=== PATIENT | female | born 1985 | race Two or more races ===

== ENCOUNTER 2017-02-20 18:26 | Inpatient (IN) | payer MEDICAID ==
[2017-02-20] MEDS ORDERED: Acetaminophen 325 MG Tab PO ONE (19:00)
[2017-02-20] MEDS ORDERED: Ondansetron 4 MG Tab.DIS PO ONE (19:01)
[2017-02-20] MEDS ORDERED: Sodium Chloride 0.9% 10 ML Syringe FLUSH PRN (20:55)
[2017-02-20] MEDS ORDERED: Citric Acid/Sodium Citrate Solution 30 ML Cup PO ONE (20:55)
[2017-02-20] MEDS ORDERED: Clindamycin Phosphate 900 MG in Sodium Chloride 0.9% 100 ML IV ONE (20:57)
--- NOTE | 2017-02-20 21:04 | PCM.LDHP ---
L&D History of Present Illness - General Date of Service: 02/20/17 Admit Problem/Dx: Patient Status Order with Admit Dx/Problem 02/20/17 20:55 Patient Status [ADT] Routine Admission Diagnosis/Problem Admission Diagnosis/Problem care Source of Information: Patient - History of Present Illness Introduction:: 31-year-old at 37w6d with a history of previous section x2. She presented with complaints of low back pain and diarrhea, which is how her last two labors started. Upon arrival to the floor, she was noted to be 3.5 cm dilated. Patient was planning to delivery in [place] and have a tubal ligation during surgery. She and her talked about it and have decided to not proceed with tubal ligation. After 2 hours, cervix had changed to 4 cm and become more anterior. She is otherwise feeling well. Baby has been active. No vaginal bleeding or leaking of fluid. Pain Score: 4 - Related Data Allergies/Adverse Reactions: Allergies Allergy/AdvReac Type Severity Reaction Status Date / Time amoxicillin Allergy Anaphylactic Verified 02/20/17 19:07 Shock Home Medications: Home Meds Vit #108/Iron/FA [ One Tablet] 1 each PO DAILY 02/20/17 [ History] Past Medical History [employer] History: Reports: Other (see below) Other OB/BYN History: one vaginal and on c section Psychiatric History: Reports: Depression Social & Family History - Family History Family Medical History: Noncontributory - Tobacco Use Smoking Status *Q: Never Smoker Second Hand Smoke Exposure: No - Caffeine Use Caffeine Use: Reports: None - Recreational Drug Use Recreational Drug Use: Yes Drug Use in Last 12 Months: Yes Recreational Drug Type: Reports: Amphetamines (Speed), Other (see below) Other Recreational Drug Type: intensive out patient tx Recreational Drug Use Frequency: Not Used In Over 1 Month Recreational Drug Last Use: dec 2016 H&P Review of Systems - Review of Systems: Review Of Systems: See Below General: Reports: no symptoms HEENT: Reports: no symptoms Pulmonary: Reports: No Symptoms Cardiovascular: Reports: no symptoms Gastrointestinal: Reports: No symptoms Genitourinary: Reports: no symptoms Musculoskeletal: Reports: back pain Skin: Reports: no symptoms L&D Exam - Exam Exam: See Below - Vital Signs Weight: 111.584 kg - OB Specific movement: active heart tones: present heart tones per min: 120 Heart Rate (FHR) Variability: Moderate (6-25 bmp) Presentation: Vertex - Abarca Score Abarca Score Cervix Position: Anterior Abarca Score Consistency: Soft Abarca Score Effacement: 31-50% Abarca Score Dilation: 3-4 cm Abarca Score 's Station: -1 ,0 Abarca Score Total: 9 - Exam General: alert, oriented Lungs: Clear to auscultation, Normal respiratory effort Cardiovascular: regular rate, regular rhythm. No: systolic murmur, diastolic murmur Abdomen: normal bowel sounds, soft, other (Ventral hernia noted superior to uterus) Skin: warm, dry, intact - Problem List (1) care in third trimester SNOMED Code(s): 219171378, 37550337, 90510924, 339574541, 363854755 ICD Code: Z34.93 - ENCNTR FOR SUPRVSN OF NORMAL PREG, UNSP, THIRD TRIMESTER Status: Acute Current Visit: Yes (2) Drug use affecting in second trimester SNOMED Code(s): 91598857, 97434196, 823889904 ICD Code: O99.322 - DRUG USE COMPLICATING , SECOND TRIMESTER Status: Acute Current Visit: Yes (3) History of delivery SNOMED Code(s): 030088435 ICD Code: Z98.891 - HISTORY OF UTERINE SCAR FROM PREVIOUS SURGERY Status: Acute Current Visit: Yes (4) Ventral hernia SNOMED Code(s): 493821509 ICD Code: K43.9 - VENTRAL HERNIA WITHOUT OBSTRUCTION OR GANGRENE Status: Acute Current Visit: Yes Problem List Initiated/Reviewed/Updated: Yes Orders Last 24hrs: Active Orders 24 hr Category Date Time Status Patient Status [ADT] Routine ADT 02/20/17 20:55 Ordered Notify Provider Vital Signs OB [RC] ASDIRECTED Care 02/20/17 20:55 Ordered Peripheral IV Care [RC] . DIRECTED Care 02/20/17 20:55 Ordered Procedure Site Prep Instruct [RC] ASDIRECTED Care 02/20/17 20:55 Ordered RT Incentive Spirometry [RC] ASDIRECTED Care 02/20/17 20:55 Ordered Vital Signs [RC] PER UNIT ROUTINE Care 02/20/17 20:55 Ordered Nothing Per Oral Diet [DIET] Diet 02/20/17 Breakfast Ordered Nothing Per Oral Diet [DIET] Diet 02/20/17 Dinner Ordered Nothing Per Oral Diet [DIET] Diet 02/20/17 Lunch Ordered CBC WITH AUTO DIFF [HEME] Routine Lab 02/20/17 20:55 Ordered DRUG SCREEN,SERUM [CHEM] Routine Lab 02/20/17 20:55 Ordered TYPE AND SCREEN [BBK] Routine Lab 02/20/17 20:55 Ordered Citric Acid/Sodium Citrate [Bicitra Solution] Med 02/20/17 20:55 Once 30 ml PO ONETIME ONE Clindamycin Phosphate [Cleocin] 900 mg Med 02/20/17 20:57 Ordered Sodium Chloride 0.9% [Normal Saline] 100 ml IV ONETIME Gentamicin 560 mg Med 02/20/17 20:55 Ordered Sodium Chloride 0.9% [Normal Saline] 100 ml IV ONETIME Sodium Chloride 0.9% [Saline Flush] Med 02/20/17 20:55 Ordered 10 ml FLUSH ASDIRECTED PRN Peripheral IV Insertion Adult [OM.PC] Routine Oth 02/20/17 20:55 Ordered Schedule Procedure [COMM] Per Unit Routine Oth 02/20/17 20:55 Ordered Resuscitation Status Routine Resus Stat 02/20/17 20:55 Ordered Medication Orders Citric Acid/Sodium Citrate (Bicitra Solution) 30 ml PO ONETIME ONE Stop: 02/20/17 20:56 Gentamicin Sulfate 560 mg/ (Sodium Chloride) 114 mls @ 200 mls/hr IV ONETIME ONE Stop: 02/20/17 21:24 Clindamycin Phosphate 900 mg/ (Sodium Chloride) 106 mls @ 200 mls/hr IV ONETIME ONE Stop: 02/20/17 21:28 Sodium Chloride (Saline Flush) 10 ml FLUSH ASDIRECTED PRN PRN Reason: Keep Vein Open Assessment/Plan Comment:: 31-year-old at 37w6d with history of repeat section and cervical change 1. Proceed with repeat section. Risks of surgery, including but no limited to blood loss, infection, injury to organs, etc was discussed with the patient. Consents were signed. 2. Ampicillin and gentamicin ordered 3. Will obtain UDS Jessica Montenegro MD
[2017-02-20] MEDS ORDERED: Sodium Chloride 0.9% 100 ML ONE (21:15)
[2017-02-20] MEDS ORDERED: Clindamycin Phosphate 900 MG/6 ML SDV ONE (21:15)
[2017-02-20] MEDS ORDERED: Oxytocin/Normal Saline 60 UNIT/1,000 ML BAG ONE (21:15)
[2017-02-20] MEDS ORDERED: Oxytocin/Normal Saline 30 UNIT/500 ML BAG IV SCH (22:00)
[2017-02-20] MEDS ORDERED: Carboprost Tromethamine 250 MCG/1 ML Amp IM ONE (22:52)
[2017-02-20] MEDS ORDERED: ePHEDrine 50 MG/ML SDV IVPUSH PRN (22:52)
[2017-02-20] MEDS ORDERED: Acetaminophen/oxyCODONE 325-5 MG Tab PO PRN (22:52)
[2017-02-20] MEDS ORDERED: Naloxone 2 MG/2 ML Syringe IVPUSH PRN (22:52)
[2017-02-20] MEDS ORDERED: Misoprostol 400 MCG (4 X 100 MCG TAB) RECTAL PRN (22:52)
[2017-02-20] MEDS ORDERED: Methylergonovine 0.2 MG/1 ML Amp IM PRN (22:52)
[2017-02-20] MEDS ORDERED: diphenhydrAMINE 50 MG/ML SDV IVPUSH PRN (22:52)
--- NOTE | 2017-02-20 22:56 | PCM.SN ---
- Free Text/Narrative Note: Section Operative Report Date of Surgery: 02/20/17 Surgeon: Jessica Montenegro MD Glost Tile Sorter: MD Gloria Tapia MSI Pre-Operative Diagnosis: History of previous section Early labor Post-Operative Diagnosis: Same Procedure Performed: Repeat low transverse section Anesthesia: Spinal EBL: 350 mL IVF: 1700 mL Drains: Tolentino catheter with 200 mL of urine output Specimens: None Complications: None apparent Findings: Normal uterus, tubes, and ovaries. Indication and Consent: patient presented with back pain and cramping. She was found to have cervical change after observation for 2 hours. The decision was made to proceed with repeat section. Initially, patient had desired tubal ligation. She had seen Dr. Dada French in [place] and was set up to deliver there in about 2-1/2 weeks. After speaking to her , patient has decided that doing a tubal is too permanent for her. Therefore, she prefers to deliver in [place].The patient understood that the risks of section include, but are not limited to, visceral or vascular injury, infection, blood loss and need for blood transfusion, prolonged hospitalization, and reoperation. The patient stated understanding and desired to proceed. All questions were answered. Procedure in Detail: The patient was taken to the operating room. Tolentino catheter and pneumoboots were placed. She was then prepped and draped in routine fashion in dorsal supine position with a left jay tilt. Two grams of cefazolin (Ancef) were given for infection prophylaxis. Spinal anesthesia was administered. A Pfannenstiel skin incision was made with a scalpel and carried down to the fascia. The fascia was incised and extended laterally. The rectus musculature was in the midline down to the level of the pubic symphysis. The peritoneum was found to be free of adherent bowel or bladder tissue and entered bluntly. The peritoneal opening was then extended superiorly and inferiorly to the bladder reflection with good visualization of the bladder. The Miguel retractor was placed. Brief intraabdominal survey revealed scant, clear peritoneal fluid and thinned-out lower uterine segment. The bladder blade was positioned to keep the bladder out of the operative field. The lower uterine segment was incised with a scalpel. The amniotic sac was ruptured with an Allis clamp and clear fluid was noted. The uterine incision was extended bluntly with lateral and upward traction. The fetus was in vertex position. The head was elevated out of the maternal pelvis with special attention paid to avoid using the uterine incision as a fulcrum. Gentle fundal pressure was applied once the head was brought into the incision. The infant was delivered with minimal difficulty. Bulb suctioning of the infant's nose and mouth was performed on the operative field. The cord was clamped and cut in standard fashion, and the was handed over to the awaiting nursery staff. IV oxytocin was initiated to facilitate uterine contractions. The placenta was delivered intact with manual message of the uterine fundus along with gentle cord traction. The uterus was then exteriorized. The inside of the uterus was gently wiped with a lap sponge to assure complete removal of remaining products of conception. The uterine incision was closed with 0 - Vicryl suture in a running locked fashion. A second imbricating layer of 0- Vicryl was also placed. The incision was inspected and hemostasis achieved. The ovaries and tubes were visualized and found to be normal. The uterus, tubes, and ovaries were returned to the abdominal cavity. The blood clots and fluid were wiped out of the abdomen and pelvis with moist laparotomy sponges. The uterine incision was re-inspected along with all other incised surfaces and good hemostasis was confirmed. The Miguel retractor was removed. The peritoneus was then closed using 2-0 Vicyrl. The fascia was then closed with 2-0 looped PDS suture with care not to include any underlying abdominal contents. The sub-cutaneous layer was reapproximated with plain suture. The skin was closed with 3-0 suture on a Thanh needle in a subcuticular fashion. Dressing was applied. Sponge and instrument counts were reported as correct times two. Pt tolerated procedure well and was taken to PACU in stable condition. Jessica Montenegro MD
--- NOTE | 2017-02-20 22:56 | PCM.DEL ---
L & D Note - General Info Date of Service: 02/20/17 - Delivery Note Labor: spontaneous Delivery Outcome: Livebirth Delivery Method: Repeat Presentation: Vertex Amniotic Fluid Description: Clear Placenta: intact, manual removal Cord: 3 vessels Estimated blood loss: 350 Anderson: stimulated Delivery Comments (Free Text/Narrative):: patient delivered via repeat section after presenting to labor and delivery with back pain and noted to have change in cervical dilation. Please see operative note for further details. Jessica Montenegro MD - Patient Data Weight - most recent: 111.584 kg Lab Results last 24 hrs: Laboratory Results - last 24 hr 02/20/17 Range/Units 21:12 WBC 9.7 (5.0-10.0) 10^3/uL RBC 3.91 L (4.2-5.4) 10^6/uL Hgb 10.4 L (12.0-16.0) g/dL Hct 32.7 L (37.0-47.0) % MCV 83.6 (80-100) fL MCH 26.6 L (27.0-34.0) pg MCHC 31.8 L (33.0-35.0) g/dL Plt Count 162 (150-450) 10^3/uL Neut % (Auto) 72.5 (42.2-75.2) % Lymph % (Auto) 17.7 L (20.5-50.1) % Miller % (Auto) 8.0 (2-8) % Eos % (Auto) 1.5 (1.0-3.0) % Baso % (Auto) 0.3 (0.0-1.0) % Add Manual Diff Yes Med Orders - Current: Current Medications Sodium Chloride (Saline Flush) 10 ml FLUSH ASDIRECTED PRN PRN Reason: Keep Vein Open Discontinued Medications Acetaminophen (Tylenol) 650 mg PO NOW ONE Stop: 02/20/17 19:01 Last Admin: 02/20/17 19:28 Dose: 650 mg Citric Acid/Sodium Citrate (Bicitra Solution) 30 ml PO ONETIME ONE Stop: 02/20/17 20:56 Last Admin: 02/20/17 21:11 Dose: 30 ml Clindamycin Phosphate (Cleocin) Confirm Administered Dose 900 mg .ROUTE .STK- MED ONE Stop: 02/20/17 21:16 Gentamicin Sulfate 560 mg/ (Sodium Chloride) 114 mls @ 200 mls/hr IV ONETIME ONE Stop: 02/20/17 21:24 Last Admin: 02/20/17 21:20 Dose: 200 mls/hr Clindamycin Phosphate 900 mg/ (Sodium Chloride) 106 mls @ 200 mls/hr IV ONETIME ONE Stop: 02/20/17 21:28 Last Admin: 02/20/17 21:28 Dose: 200 mls/hr Oxytocin/Sodium Chloride (Pitocin In Ns 30 Unit/500 Ml) Confirm Administered Dose 60 unit in 1,000 mls @ as directed .ROUTE .STK-MED ONE Stop: 02/20/17 21:16 Sodium Chloride (Normal Saline) Confirm Administered Dose 100 mls @ as directed .ROUTE .STK-MED ONE Stop: 02/20/17 21:16 Ondansetron HCl (Zofran Odt) 8 mg PO ONETIME ONE Stop: 02/20/17 19:02 Last Admin: 02/20/17 19:27 Dose: 8 mg - Problem List & Annotations (1) care in third trimester SNOMED Code(s): 909625966, 72641349, 93603495, 765546490, 855243920 Code(s): Z34.93 - ENCNTR FOR SUPRVSN OF NORMAL PREG, UNSP, THIRD TRIMESTER Status: Acute Current Visit: Yes (2) Drug use affecting in second trimester SNOMED Code(s): 36302277, 07899169, 109319771 Code(s): O99.322 - DRUG USE COMPLICATING , SECOND TRIMESTER Status : Acute Current Visit: Yes (3) History of delivery SNOMED Code(s): 287416070 Code(s): Z98.891 - HISTORY OF UTERINE SCAR FROM PREVIOUS SURGERY Status: Acute Current Visit: Yes (4) Ventral hernia SNOMED Code(s): 127935390 Code(s): K43.9 - VENTRAL HERNIA WITHOUT OBSTRUCTION OR GANGRENE Status: Acute Current Visit: Yes (5) Status post delivery SNOMED Code(s): 793306885, 975620996 Code(s): Z98.891 - HISTORY OF UTERINE SCAR FROM PREVIOUS SURGERY Status: Acute Current Visit: Yes - Problem List Review Problem List Initiated/Reviewed/Updated: Yes - My Orders Last 24 Hours: My Active Orders 02/20/17 20:30 DRUG SCREEN URINE BIORAD [URCHEM] Routine 02/20/17 20:55 Patient Status [ADT] Routine Notify Provider Vital Signs OB [RC] ASDIRECTED Peripheral IV Care [RC] . DIRECTED Vital Signs [RC] PER UNIT ROUTINE Sodium Chloride 0.9% [Saline Flush] 10 ml FLUSH ASDIRECTED PRN Peripheral IV Insertion Adult [OM.PC] Routine Resuscitation Status Routine 02/20/17 21:12 CBC WITH AUTO DIFF [HEME] Routine MANUAL DIFFERENTIAL QA/NC [HEME] Routine TYPE AND SCREEN [BBK] Routine 02/20/17 22:52 Intake and Output [RC] Q8H Notify Provider Intake and Out [RC] ASDIRECTED Consult to Automatic Lathe Setter [CONS] Routine Acetaminophen/oxyCODONE [Percocet 325-5 MG] 1 tab PO Q4H PRN Acetaminophen/oxyCODONE [Percocet 325-5 MG] 2 tab PO Q4H PRN Carboprost Tromethamine [Hemabate DS] 250 mcg IM ONETIME ONE Docusate Sodium [Colace] 100 mg PO Q12H PRN Ibuprofen [Motrin] 800 mg PO Q8H PRN Methylergonovine [Methergine] 0.2 mg IM ONETIME PRN Misoprostol [Cytotec] 800 mcg RECTAL ASDIRECTED PRN Naloxone [Narcan] 0.1 mg IVPUSH SEECOMMENT PRN Ondansetron [Zofran] 4 mg IV Q4H PRN Simethicone 80 mg PO Q4H PRN diphenhydrAMINE [Benadryl] 25 mg IVPUSH Q6H PRN ePHEDrine [ePHEDrine Sulfate] 5 mg IVPUSH SEECOMMENT PRN 02/20/17 22:53 Antiembolic Devices [RC] PER UNIT ROUTINE Bedrest [RC] ASDIRECTED Communication Order [RC] PER UNIT ROUTINE Communication Order [RC] PER UNIT ROUTINE Communication Order [RC] Per Unit Routine Notify Provider Vital Signs OB [RC] ASDIRECTED RT Incentive Spirometry [RC] Q2HWA Urinary Catheter Removal [RC] Per Unit Routine Vital Signs [RC] PER UNIT ROUTINE Antiembolic Hose [OM.PC] Per Unit Routine Assess Lochia [WOMSER] Per Unit Routine Assess Uterine Involution [WOMSER] Per Unit Routine Breast Pump [WOMSER] Per Unit Routine Sequential Compression Device [OM.PC] Per Unit Routine 02/20/17 23:00 Ketorolac [Toradol] 15 mg IVPUSH Q6H Lactated Ringers @ 125 MLS/HR(1000ml) Lactated Ringers [Ringers, Lactated] 1, 000 ml IV ASDIRECTED 02/20/17 Breakfast Clear Liquid Diet [DIET] 02/20/17 Lunch Regular Diet [DIET] 02/21/17 18:00 CBC W/O DIFF,HEMOGRAM [HEME] Routine - Assessment Assessment:: 31-year-old female status post repeat section at 37 weeks 6 days. - Plan Plan:: 1. Initiate routine cares 2. Patient plans to bottlefeed 3. Will repeat hemoglobin at 24 hours post delivery. 4. Anticipate discharge 02/23/17. Jessica Montenegro MD
[2017-02-20] MEDS ORDERED: Ketorolac 30 MG/ML SDV IVPUSH SCH (23:00)
[2017-02-20] MEDS: Lactated Ringers 1,000 ML IV SCH (23:31)
[2017-02-20] MEDS ORDERED: Ketorolac 30 MG/ML SDV IVPUSH ONE (23:37)
[2017-02-20] MEDS: Ondansetron 4 MG/2 ML SDV IV PRN (23:52)
[2017-02-21] MEDS: Ondansetron 4 MG/2 ML SDV IV PRN ×2 (04:50→09:09)
[2017-02-21] MEDS: Ketorolac 30 MG/ML SDV IVPUSH SCH ×3 (05:28→17:53)
[2017-02-21] MEDS: Lactated Ringers 1,000 ML IV SCH ×2 (05:33→13:53)
--- NOTE | 2017-02-21 08:04 | PCM.PNPP ---
[id number] Dx/Problem (Free Text): Patient Status Order with Admit Dx/Problem 02/20/17 20:55 Patient Status [ADT] Routine Admission Diagnosis/Problem Admission Diagnosis/Problem care Subjective Update: Patient has faired well in the postoperative period. She has noted return of feeling to lower apsect of body and some itching throughout. She reports that she woke up this morning with nausea and vomiting but that this has subsided for now. Denies any signs of infections. She has also decided to bottle feed so that she can resume her medication for her depression. Functional Status: Reports: pain controlled, tolerating diet (currently working on an [employer]) - Review of Systems General: Reports: No Symptoms. Denies: Fever, Chills HEENT: Reports: no symptoms Pulmonary: Reports: no symptoms. Denies: shortness of breath, cough, wheezing Cardiovascular: Reports: No Symptoms Gastrointestinal: Reports: Nausea, Vomiting Genitourinary: Reports: no symptoms Musculoskeletal: Reports: no symptoms Skin: Reports: pruritis Neurological: Reports: No Symptoms Psychiatric: Reports: no symptoms - General Info Date of Service: 02/21/17 - Patient Data Vital Signs - most recent: Last Vital Signs Temp 98.3 F 02/21/17 04:52 Pulse 62 02/21/17 04:52 Resp 16 02/21/17 04:52 BP 97/59 L 02/21/17 04:52 Pulse Ox 97 02/21/17 04:52 Weight - most recent: 111.584 kg I&O - last 24 hours: Intake & Output 02/20/17 02/21/17 02/21/17 22:59 06:59 14:59 Intake Total 1000 275 Output Total 1200 Balance 1000 -925 Lab Results - last 24 hrs: Laboratory Results - last 24 hr 02/20/17 02/20/17 02/20/17 Range/Units 20:30 21:12 21:12 WBC 9.7 (5.0-10.0) 10^3/uL RBC 3.91 L (4.2-5.4) 10^6/uL Hgb 10.4 L (12.0-16.0) g/dL Hct 32.7 L (37.0-47.0) % MCV 83.6 (80-100) fL MCH 26.6 L (27.0-34.0) pg MCHC 31.8 L (33.0-35.0) g/dL Plt Count 162 (150-450) 10^3/uL Neut % (Auto) 72.5 (42.2-75.2) % Lymph % (Auto) 17.7 L (20.5-50.1) % [place] % (Auto) 8.0 (2-8) % Eos % (Auto) 1.5 (1.0-3.0) % Baso % (Auto) 0.3 (0.0-1.0) % Add Manual Diff Yes Neutrophils % (Manual) 66 % Lymphocytes % (Manual) 25 % Monocytes % (Manual) 6 % Eosinophils % (Manual) 2 % Myelocytes % 1 Atypical Lymphocytes Few Toxic Granulation 1+ slight Platelet Estimate Adequate Giant Platelets Few Polychromasia 1+ slight Urine Opiates Screen Negative (NEGATIVE) Ur Oxycodone Screen Negative (NEGATIVE) Urine Methadone Screen Negative (NEGATIVE) Ur Barbiturates Screen Negative (NEGATIVE) U Tricyclic Antidepress Negative (NEGATIVE) Ur Phencyclidine Scrn Negative (NEGATIVE) Ur Amphetamine Screen Negative (NEGATIVE) U Methamphetamines Scrn Negative (NEGATIVE) Urine MDMA Screen Negative (NEGATIVE) U Benzodiazepines Scrn Negative (NEGATIVE) Urine Cocaine Screen Negative (NEGATIVE) U Marijuana (THC) Screen Negative (NEGATIVE) Blood Type A POSITIVE Gel Antibody Screen Negative Med Orders - Current: Current Medications Diphenhydramine HCl (Benadryl) 25 mg IVPUSH Q6H PRN PRN Reason: Itching or Nausea Last Admin: 02/21/17 00:42 Dose: 25 mg Docusate Sodium (Colace) 100 mg PO Q12H PRN PRN Reason: Constipation Ephedrine Sulfate (Ephedrine Sulfate) 5 mg IVPUSH SEECOMMENT PRN PRN Reason: Other Lactated Ringer's (Ringers, Lactated) 1,000 mls @ 125 mls/hr IV ASDIRECTED KASSI Last Admin: 02/21/17 05:33 Dose: 125 mls/hr Oxytocin/Sodium Chloride (Pitocin In Ns 30 Unit/500 Ml) 30 unit in 500 mls @ 2 mls/hr IV TITRATE KASSI; 2 MUNITS/MIN PRN Reason: Protocol Last Titration: 02/21/17 00:30 Dose: 0 munits/min, 0 mls/hr Ibuprofen (Motrin) 800 mg PO Q8H PRN PRN Reason: mild pain or fever Ketorolac Tromethamine (Toradol) 15 mg IVPUSH Q6H KASSI Stop: 02/21/17 18:01 Last Admin: 02/21/17 05:28 Dose: 15 mg Methylergonovine Maleate (Methergine) 0.2 mg IM ONETIME PRN PRN Reason: Excessive Vaginal Bleeding Misoprostol (Cytotec) 800 mcg RECTAL ASDIRECTED PRN PRN Reason: Bleeding Naloxone HCl (Narcan) 0.1 mg IVPUSH SEECOMMENT PRN PRN Reason: Respiratory Depression Ondansetron HCl (Zofran) 4 mg IV Q4H PRN PRN Reason: Nausea/Vomiting Last Admin: 02/21/17 04:50 Dose: 4 mg Oxycodone/Acetaminophen (Percocet 325-5 Mg) 1 tab PO Q4H PRN PRN Reason: Pain (moderate 4-6) Oxycodone/Acetaminophen (Percocet 325-5 Mg) 2 tab PO Q4H PRN PRN Reason: Pain (moderate 4-6) Simethicone (Simethicone) 80 mg PO Q4H PRN PRN Reason: Gas Sodium Chloride (Saline Flush) 10 ml FLUSH ASDIRECTED PRN PRN Reason: Keep Vein Open Discontinued Medications Acetaminophen (Tylenol) 650 mg PO NOW ONE Stop: 02/20/17 19:01 Last Admin: 02/20/17 19:28 Dose: 650 mg Carboprost Tromethamine (Hemabate Ds) 250 mcg IM ONETIME ONE Stop: 02/20/17 22:53 Last Admin: 02/21/17 00:57 Dose: Not Given Citric Acid/Sodium Citrate (Bicitra Solution) 30 ml PO ONETIME ONE Stop: 02/20/17 20:56 Last Admin: 02/20/17 21:11 Dose: 30 ml Clindamycin Phosphate (Cleocin) Confirm Administered Dose 900 mg .ROUTE .STK- MED ONE Stop: 02/20/17 21:16 Gentamicin Sulfate 560 mg/ (Sodium Chloride) 114 mls @ 200 mls/hr IV ONETIME ONE Stop: 02/20/17 21:24 Last Admin: 02/20/17 21:20 Dose: 200 mls/hr Clindamycin Phosphate 900 mg/ (Sodium Chloride) 106 mls @ 200 mls/hr IV ONETIME ONE Stop: 02/20/17 21:28 Last Admin: 02/20/17 21:28 Dose: 200 mls/hr Oxytocin/Sodium Chloride (Pitocin In Ns 30 Unit/500 Ml) Confirm Administered Dose 60 unit in 1,000 mls @ as directed .ROUTE .STK-MED ONE Stop: 02/20/17 21:16 Sodium Chloride (Normal Saline) Confirm Administered Dose 100 mls @ as directed .ROUTE .STK-MED ONE Stop: 02/20/17 21:16 Ibuprofen (Motrin) 800 mg PO Q8H PRN PRN Reason: mild pain or fever Ketorolac Tromethamine (Toradol) 15 mg IVPUSH Q6H KASSI Stop: 02/21/17 11:01 Last Admin: 02/21/17 05:35 Dose: Not Given Ketorolac Tromethamine (Toradol) 30 mg IVPUSH ONETIME ONE Stop: 02/20/17 23:38 Last Admin: 02/20/17 23:54 Dose: 30 mg Ondansetron HCl (Zofran Odt) 8 mg PO ONETIME ONE Stop: 02/20/17 19:02 Last Admin: 02/20/17 19:27 Dose: 8 mg - Interaction Disposition, : at Bedside Infant Interaction: Other (see below) (infant at side of bed while she was being checked by nursing staff) Feeding: Bottle Fed Infant Support Person: - Recovery Exam Fundal Tone: Firm Fundal Level: At Umbilicus Fundal Placement: Midline Lochia Amount: Small Lochia Color: Rubra/Red Perineum Description: Intact, Minimal Bruising/Swelling Episiotomy/Laceration: None Bladder Status: Indwelling Catheter in Place Urinary Elimination: Indwelling Catheter - Exam Quality Assessment: urine catheter General: alert, oriented, cooperative, no acute distress HEENT: Pupils equal, Pupils reactive Neck: supple Lungs: Clear to auscultation, Normal respiratory effort Cardiovascular: Regular Rate, Regular Rhythm Abdomen: bowel sounds present, soft, no distension Extremities: no edema, no calf tenderness Skin: warm, dry, intact Wound/Incisions: healing well, dressing dry and intact, no drainage Neurological: no new focal deficit Psy/Mental Status: alert, normal affect, normal mood - Problem List & Annotations (1) Status post delivery SNOMED Code(s): 748686226, 772523704 Code(s): Z98.891 - HISTORY OF UTERINE SCAR FROM PREVIOUS SURGERY Status: Acute Current Visit: Yes (2) Drug use affecting in second trimester SNOMED Code(s): 79562355, 39918724, 920915342 Code(s): O99.322 - DRUG USE COMPLICATING , SECOND TRIMESTER Status : Acute Current Visit: Yes (3) History of delivery SNOMED Code(s): 708128556 Code(s): Z98.891 - HISTORY OF UTERINE SCAR FROM PREVIOUS SURGERY Status: Acute Current Visit: Yes (4) care in third trimester SNOMED Code(s): 663681130, 01379780, 45044273, 745316090, 516802599 Code(s): Z34.93 - ENCNTR FOR SUPRVSN OF NORMAL PREG, UNSP, THIRD TRIMESTER Status: Acute Current Visit: Yes (5) Ventral hernia SNOMED Code(s): 312735728 Code(s): K43.9 - VENTRAL HERNIA WITHOUT OBSTRUCTION OR GANGRENE Status: Acute Current Visit: Yes (6) Blood type A+ SNOMED Code(s): 583651555 Code(s): Z67.10 - TYPE A BLOOD, RH POSITIVE Status: Acute Current Visit: Yes - Problem List Review Problem List Initiated/Reviewed/Updated: Yes - Assessment Assessment:: 31-year-old with a history of drug use is now delivered a viable infant girl via repeat csection at 37w6d - Plan Plan:: 31-year-old at 37w6d with history of repeat section and cervical change no status post approximately 9.5 hours c section 1. Continue cares per unit protocol 2. Restart effexor 37.5 mg and will titrate up 3. Plan to remove guzmán catheter later today if nausea has improved. 4. Ambulate after catheter has been removed 5. Advance diet as tolerated 6. Plan for discharge 02/23/17 <Jessica Montenegro - Last Filed: 02/23/17 12:46> - Patient Data Vital Signs - most recent: Last Vital Signs Temp 36.9 C 02/23/17 09:26 Pulse 59 L 02/23/17 09:26 Resp 16 02/23/17 09:26 BP 135/85 02/23/17 09:26 Pulse Ox 100 02/23/17 09:26 Med Orders - Current: Current Medications Diphenhydramine HCl (Benadryl) 25 mg IVPUSH Q6H PRN PRN Reason: Itching or Nausea Last Admin: 02/21/17 00:42 Dose: 25 mg Docusate Sodium (Colace) 100 mg PO Q12H PRN PRN Reason: Constipation Last Admin: 02/23/17 09:14 Dose: 100 mg Ephedrine Sulfate (Ephedrine Sulfate) 5 mg IVPUSH SEECOMMENT PRN PRN Reason: Other Lactated Ringer's (Ringers, Lactated) 1,000 mls @ 125 mls/hr IV ASDIRECTED KASSI Last Admin: 02/21/17 13:53 Dose: 125 mls/hr Oxytocin/Sodium Chloride (Pitocin In Ns 30 Unit/500 Ml) 30 unit in 500 mls @ 2 mls/hr IV TITRATE KASSI; 2 MUNITS/MIN PRN Reason: Protocol Last Titration: 02/21/17 00:30 Dose: 0 munits/min, 0 mls/hr Ibuprofen (Motrin) 800 mg PO Q8H PRN PRN Reason: mild pain or fever Last Admin: 02/23/17 05:13 Dose: 800 mg Methylergonovine Maleate (Methergine) 0.2 mg IM ONETIME PRN PRN Reason: Excessive Vaginal Bleeding Misoprostol (Cytotec) 800 mcg RECTAL ASDIRECTED PRN PRN Reason: Bleeding Naloxone HCl (Narcan) 0.1 mg IVPUSH SEECOMMENT PRN PRN Reason: Respiratory Depression Ondansetron HCl (Zofran) 4 mg IV Q4H PRN PRN Reason: Nausea/Vomiting Last Admin: 02/21/17 09:09 Dose: 4 mg Oxycodone/Acetaminophen (Percocet 325-5 Mg) 1 tab PO Q4H PRN PRN Reason: Pain (moderate 4-6) Last Admin: 02/21/17 14:55 Dose: 1 tab Oxycodone/Acetaminophen (Percocet 325-5 Mg) 2 tab PO Q4H PRN PRN Reason: Pain (moderate 4-6) Last Admin: 02/23/17 09:14 Dose: 2 tab Simethicone (Simethicone) 80 mg PO Q4H PRN PRN Reason: Gas Last Admin: 02/23/17 09:14 Dose: 80 mg Sodium Chloride (Saline Flush) 10 ml FLUSH ASDIRECTED PRN PRN Reason: Keep Vein Open Venlafaxine HCl (Effexor Xr) 37.5 mg PO WITHBREAKFAST KASSI Last Admin: 02/23/17 09:14 Dose: 37.5 mg Discontinued Medications Acetaminophen (Tylenol) 650 mg PO NOW ONE Stop: 02/20/17 19:01 Last Admin: 02/20/17 19:28 Dose: 650 mg Carboprost Tromethamine (Hemabate Ds) 250 mcg IM ONETIME ONE Stop: 02/20/17 22:53 Last Admin: 02/21/17 00:57 Dose: Not Given Citric Acid/Sodium Citrate (Bicitra Solution) 30 ml PO ONETIME ONE Stop: 02/20/17 20:56 Last Admin: 02/20/17 21:11 Dose: 30 ml Clindamycin Phosphate (Cleocin) Confirm Administered Dose 900 mg .ROUTE .STK- MED ONE Stop: 02/20/17 21:16 Gentamicin Sulfate 560 mg/ (Sodium Chloride) 114 mls @ 200 mls/hr IV ONETIME ONE Stop: 02/20/17 21:24 Last Admin: 02/20/17 21:20 Dose: 200 mls/hr Clindamycin Phosphate 900 mg/ (Sodium Chloride) 106 mls @ 200 mls/hr IV ONETIME ONE Stop: 02/20/17 21:28 Last Admin: 02/20/17 21:28 Dose: 200 mls/hr Oxytocin/Sodium Chloride (Pitocin In Ns 30 Unit/500 Ml) Confirm Administered Dose 60 unit in 1,000 mls @ as directed .ROUTE .STK-MED ONE Stop: 02/20/17 21:16 Sodium Chloride (Normal Saline) Confirm Administered Dose 100 mls @ as directed .ROUTE .STK-MED ONE Stop: 02/20/17 21:16 Ibuprofen (Motrin) 800 mg PO Q8H PRN PRN Reason: mild pain or fever Ketorolac Tromethamine (Toradol) 15 mg IVPUSH Q6H KASSI Stop: 02/21/17 11:01 Last Admin: 02/21/17 05:35 Dose: Not Given Ketorolac Tromethamine (Toradol) 30 mg IVPUSH ONETIME ONE Stop: 02/20/17 23:38 Last Admin: 02/20/17 23:54 Dose: 30 mg Ketorolac Tromethamine (Toradol) 15 mg IVPUSH Q6H KASSI Stop: 02/21/17 18:01 Last Admin: 02/21/17 17:53 Dose: 15 mg Ondansetron HCl (Zofran Odt) 8 mg PO ONETIME ONE Stop: 02/20/17 19:02 Last Admin: 02/20/17 19:27 Dose: 8 mg - Problem List & Annotations (1) care in third trimester SNOMED Code(s): 498953196, 91946348, 08499954, 909629053, 371420521 Code(s): Z34.93 - ENCNTR FOR SUPRVSN OF NORMAL PREG, UNSP, THIRD TRIMESTER Status: Acute Current Visit: Yes (2) Drug use affecting in second trimester SNOMED Code(s): 35035350, 20284830, 793876506 Code(s): O99.322 - DRUG USE COMPLICATING , SECOND TRIMESTER Status : Acute Current Visit: Yes (3) History of delivery SNOMED Code(s): 061687908 Code(s): Z98.891 - HISTORY OF UTERINE SCAR FROM PREVIOUS SURGERY Status: Acute Current Visit: Yes (4) Ventral hernia SNOMED Code(s): 504757679 Code(s): K43.9 - VENTRAL HERNIA WITHOUT OBSTRUCTION OR GANGRENE Status: Acute Current Visit: Yes - My Orders Last 24 Hours: My Active Orders 02/23/17 12:09 Ready for Discharge [RC] PER UNIT ROUTINE - Plan Plan:: Agree with student assessment and plan. We'll start Effexor today and follow-up with patient to titrate dose as needed to obtain therapeutic benefit. Patient's nausea and vomiting are improving. No other concerns at this time. Jessica Montenegro MD
[2017-02-21] MEDS: Simethicone 80 MG Tab.Chew PO PRN ×2 (09:09→12:24)
[2017-02-21] MEDS: Venlafaxine 37.5 MG Cap.ER PO SCH (11:09)
[2017-02-21] MEDS: Docusate Sodium 100 MG Cap PO PRN ×2 (14:56→20:54)
[2017-02-21] MEDS ORDERED: Ibuprofen 800 MG Tab PO PRN (19:00)
[2017-02-21] MEDS: Acetaminophen/oxyCODONE 325-5 MG Tab PO PRN (20:45)
[2017-02-22] MEDS: Acetaminophen/oxyCODONE 325-5 MG Tab PO PRN ×5 (02:53→20:58)
[2017-02-22] MEDS: Ibuprofen 800 MG Tab PO PRN ×3 (03:02→19:46)
[2017-02-22] MEDS: Docusate Sodium 100 MG Cap PO PRN ×2 (07:25→20:58)
[2017-02-22] MEDS: Venlafaxine 37.5 MG Cap.ER PO SCH (07:26)
[2017-02-22] MEDS: Simethicone 80 MG Tab.Chew PO PRN ×3 (07:26→20:57)
--- NOTE | 2017-02-22 07:51 | PCM.PNPP ---
[id number] Dx/Problem (Free Text): Patient Status Order with Admit Dx/Problem 02/20/17 20:55 Patient Status [ADT] Routine Admission Diagnosis/Problem Admission Diagnosis/Problem care 31-year-old with a history of drug use is now delivered a viable infant girl via repeat csection at 37w6d Subjective Update: Patient has faired well in the postoperative period. Nausea and vomiting have subisided since yesterday and she states she is feeling much better. Continues to deny any signs of infections. She is bottle feed and has resumed her medication for her depression. Bottle feeding has been going well. Functional Status: Reports: pain controlled, tolerating diet, ambulating, urinating - Review of Systems General: Reports: No Symptoms. Denies: Fever, Chills HEENT: Reports: no symptoms Pulmonary: Reports: no symptoms. Denies: shortness of breath, cough, wheezing Cardiovascular: Reports: No Symptoms. Denies: Edema Gastrointestinal: Reports: No symptoms. Denies: Nausea, Vomiting Genitourinary: Reports: no symptoms Musculoskeletal: Reports: no symptoms Skin: Reports: no symptoms Neurological: Reports: No Symptoms Psychiatric: Reports: no symptoms - General Info Date of Service: 02/22/17 - Patient Data Vital Signs - most recent: Last Vital Signs Temp 98.2 F 02/22/17 03:19 Pulse 64 02/22/17 03:19 Resp 20 02/22/17 03:19 BP 133/80 02/22/17 03:19 Pulse Ox 99 02/22/17 03:19 Weight - most recent: 111.584 kg I&O - last 24 hours: Intake & Output 02/21/17 02/22/17 02/22/17 22:59 06:59 14:59 Intake Total 1650 Output Total 1250 800 Balance 400 -800 Lab Results - last 24 hrs: Laboratory Results - last 24 hr 02/21/17 Range/Units 18:25 WBC 8.7 (5.0-10.0) 10^3/uL RBC 3.49 L (4.2-5.4) 10^6/uL Hgb 9.3 L (12.0-16.0) g/dL Hct 29.6 L (37.0-47.0) % MCV 84.8 (80-100) fL MCH 26.6 L (27.0-34.0) pg MCHC 31.4 L (33.0-35.0) g/dL Plt Count 145 L (150-450) 10^3/uL Med Orders - Current: Current Medications Diphenhydramine HCl (Benadryl) 25 mg IVPUSH Q6H PRN PRN Reason: Itching or Nausea Last Admin: 02/21/17 00:42 Dose: 25 mg Docusate Sodium (Colace) 100 mg PO Q12H PRN PRN Reason: Constipation Last Admin: 02/22/17 07:25 Dose: 100 mg Ephedrine Sulfate (Ephedrine Sulfate) 5 mg IVPUSH SEECOMMENT PRN PRN Reason: Other Lactated Ringer's (Ringers, Lactated) 1,000 mls @ 125 mls/hr IV ASDIRECTED KASSI Last Admin: 02/21/17 13:53 Dose: 125 mls/hr Oxytocin/Sodium Chloride (Pitocin In Ns 30 Unit/500 Ml) 30 unit in 500 mls @ 2 mls/hr IV TITRATE KASSI; 2 MUNITS/MIN PRN Reason: Protocol Last Titration: 02/21/17 00:30 Dose: 0 munits/min, 0 mls/hr Ibuprofen (Motrin) 800 mg PO Q8H PRN PRN Reason: mild pain or fever Last Admin: 02/22/17 03:02 Dose: 800 mg Methylergonovine Maleate (Methergine) 0.2 mg IM ONETIME PRN PRN Reason: Excessive Vaginal Bleeding Misoprostol (Cytotec) 800 mcg RECTAL ASDIRECTED PRN PRN Reason: Bleeding Naloxone HCl (Narcan) 0.1 mg IVPUSH SEECOMMENT PRN PRN Reason: Respiratory Depression Ondansetron HCl (Zofran) 4 mg IV Q4H PRN PRN Reason: Nausea/Vomiting Last Admin: 02/21/17 09:09 Dose: 4 mg Oxycodone/Acetaminophen (Percocet 325-5 Mg) 1 tab PO Q4H PRN PRN Reason: Pain (moderate 4-6) Last Admin: 02/21/17 14:55 Dose: 1 tab Oxycodone/Acetaminophen (Percocet 325-5 Mg) 2 tab PO Q4H PRN PRN Reason: Pain (moderate 4-6) Last Admin: 02/22/17 07:25 Dose: 2 tab Simethicone (Simethicone) 80 mg PO Q4H PRN PRN Reason: Gas Last Admin: 02/22/17 07:26 Dose: 80 mg Sodium Chloride (Saline Flush) 10 ml FLUSH ASDIRECTED PRN PRN Reason: Keep Vein Open Venlafaxine HCl (Effexor Xr) 37.5 mg PO WITHBREAKFAST KASSI Last Admin: 02/22/17 07:26 Dose: 37.5 mg Discontinued Medications Acetaminophen (Tylenol) 650 mg PO NOW ONE Stop: 02/20/17 19:01 Last Admin: 02/20/17 19:28 Dose: 650 mg Carboprost Tromethamine (Hemabate Ds) 250 mcg IM ONETIME ONE Stop: 02/20/17 22:53 Last Admin: 02/21/17 00:57 Dose: Not Given Citric Acid/Sodium Citrate (Bicitra Solution) 30 ml PO ONETIME ONE Stop: 02/20/17 20:56 Last Admin: 02/20/17 21:11 Dose: 30 ml Clindamycin Phosphate (Cleocin) Confirm Administered Dose 900 mg .ROUTE .STK- MED ONE Stop: 02/20/17 21:16 Gentamicin Sulfate 560 mg/ (Sodium Chloride) 114 mls @ 200 mls/hr IV ONETIME ONE Stop: 02/20/17 21:24 Last Admin: 02/20/17 21:20 Dose: 200 mls/hr Clindamycin Phosphate 900 mg/ (Sodium Chloride) 106 mls @ 200 mls/hr IV ONETIME ONE Stop: 02/20/17 21:28 Last Admin: 02/20/17 21:28 Dose: 200 mls/hr Oxytocin/Sodium Chloride (Pitocin In Ns 30 Unit/500 Ml) Confirm Administered Dose 60 unit in 1,000 mls @ as directed .ROUTE .STK-MED ONE Stop: 02/20/17 21:16 Sodium Chloride (Normal Saline) Confirm Administered Dose 100 mls @ as directed .ROUTE .STK-MED ONE Stop: 02/20/17 21:16 Ibuprofen (Motrin) 800 mg PO Q8H PRN PRN Reason: mild pain or fever Ketorolac Tromethamine (Toradol) 15 mg IVPUSH Q6H KASSI Stop: 02/21/17 11:01 Last Admin: 02/21/17 05:35 Dose: Not Given Ketorolac Tromethamine (Toradol) 30 mg IVPUSH ONETIME ONE Stop: 02/20/17 23:38 Last Admin: 02/20/17 23:54 Dose: 30 mg Ketorolac Tromethamine (Toradol) 15 mg IVPUSH Q6H KASSI Stop: 02/21/17 18:01 Last Admin: 02/21/17 17:53 Dose: 15 mg Ondansetron HCl (Zofran Odt) 8 mg PO ONETIME ONE Stop: 02/20/17 19:02 Last Admin: 02/20/17 19:27 Dose: 8 mg - Infant Interaction Disposition, : at Bedside Interaction: Other (see below) ( at side of bed while she was being checked by nursing staff) Feeding: Bottle Fed Support Person: - Recovery Exam Fundal Tone: Firm Fundal Level: 1 Fingerbreadths Below Umbilicus Fundal Placement: Midline Lochia Amount: Small Lochia Color: Rubra/Red Perineum Description: Intact, Minimal Bruising/Swelling Episiotomy/Laceration: None Bladder Status: Voiding Urinary Elimination: Voided - Exam General: alert, oriented, cooperative HEENT: Pupils equal Neck: supple Lungs: Clear to auscultation, Normal respiratory effort Cardiovascular: Regular Rate, Regular Rhythm Abdomen: bowel sounds present, soft, no tenderness, no distension Extremities: no edema Skin: warm, dry, intact Wound/Incisions: healing well, dressing dry and intact, no drainage Neurological: no new focal deficit Psy/Mental Status: alert, normal affect, normal mood - Problem List & Annotations (1) Status post delivery SNOMED Code(s): 606446655, 053099924 Code(s): Z98.891 - HISTORY OF UTERINE SCAR FROM PREVIOUS SURGERY Status: Acute Current Visit: Yes (2) Drug use affecting in second trimester SNOMED Code(s): 65259334, 20747730, 290179239 Code(s): O99.322 - DRUG USE COMPLICATING , SECOND TRIMESTER Status : Acute Current Visit: Yes (3) History of delivery SNOMED Code(s): 955703130 Code(s): Z98.891 - HISTORY OF UTERINE SCAR FROM PREVIOUS SURGERY Status: Acute Current Visit: Yes (4) care in third trimester SNOMED Code(s): 569244445, 12130847, 53487061, 313757646, 415778184 Code(s): Z34.93 - ENCNTR FOR SUPRVSN OF NORMAL PREG, UNSP, THIRD TRIMESTER Status: Acute Current Visit: Yes (5) Ventral hernia SNOMED Code(s): 560077605 Code(s): K43.9 - VENTRAL HERNIA WITHOUT OBSTRUCTION OR GANGRENE Status: Acute Current Visit: Yes (6) Blood type A+ SNOMED Code(s): 107343099 Code(s): Z67.10 - TYPE A BLOOD, RH POSITIVE Status: Acute Current Visit: Yes - Problem List Review Problem List Initiated/Reviewed/Updated: Yes - Assessment Assessment:: 31-year-old with a history of drug use is now delivered a viable girl via repeat csection at 37w6d status post 2 days from c section - Plan Plan:: 31-year-old at 37w6d with history of repeat section and cervical change no status post approximately 9.5 hours c section 1. Continue cares per unit protocol 2. Restart effexor 37.5 mg and will titrate up 3. Continue to ambulate 4. Shower as able 5. Plan for discharge 02/23/17 <Jessica Montenegro - Last Filed: 02/23/17 12:51> - Patient Data Vital Signs - most recent: Last Vital Signs Temp 36.9 C 02/23/17 09:26 Pulse 59 L 02/23/17 09:26 Resp 16 02/23/17 09:26 BP 135/85 02/23/17 09:26 Pulse Ox 100 02/23/17 09:26 Med Orders - Current: Current Medications Diphenhydramine HCl (Benadryl) 25 mg IVPUSH Q6H PRN PRN Reason: Itching or Nausea Last Admin: 02/21/17 00:42 Dose: 25 mg Docusate Sodium (Colace) 100 mg PO Q12H PRN PRN Reason: Constipation Last Admin: 02/23/17 09:14 Dose: 100 mg Ephedrine Sulfate (Ephedrine Sulfate) 5 mg IVPUSH SEECOMMENT PRN PRN Reason: Other Lactated Ringer's (Ringers, Lactated) 1,000 mls @ 125 mls/hr IV ASDIRECTED KASSI Last Admin: 02/21/17 13:53 Dose: 125 mls/hr Oxytocin/Sodium Chloride (Pitocin In Ns 30 Unit/500 Ml) 30 unit in 500 mls @ 2 mls/hr IV TITRATE KASSI; 2 MUNITS/MIN PRN Reason: Protocol Last Titration: 02/21/17 00:30 Dose: 0 munits/min, 0 mls/hr Ibuprofen (Motrin) 800 mg PO Q8H PRN PRN Reason: mild pain or fever Last Admin: 02/23/17 05:13 Dose: 800 mg Methylergonovine Maleate (Methergine) 0.2 mg IM ONETIME PRN PRN Reason: Excessive Vaginal Bleeding Misoprostol (Cytotec) 800 mcg RECTAL ASDIRECTED PRN PRN Reason: Bleeding Naloxone HCl (Narcan) 0.1 mg IVPUSH SEECOMMENT PRN PRN Reason: Respiratory Depression Ondansetron HCl (Zofran) 4 mg IV Q4H PRN PRN Reason: Nausea/Vomiting Last Admin: 02/21/17 09:09 Dose: 4 mg Oxycodone/Acetaminophen (Percocet 325-5 Mg) 1 tab PO Q4H PRN PRN Reason: Pain (moderate 4-6) Last Admin: 02/21/17 14:55 Dose: 1 tab Oxycodone/Acetaminophen (Percocet 325-5 Mg) 2 tab PO Q4H PRN PRN Reason: Pain (moderate 4-6) Last Admin: 02/23/17 09:14 Dose: 2 tab Simethicone (Simethicone) 80 mg PO Q4H PRN PRN Reason: Gas Last Admin: 02/23/17 09:14 Dose: 80 mg Sodium Chloride (Saline Flush) 10 ml FLUSH ASDIRECTED PRN PRN Reason: Keep Vein Open Venlafaxine HCl (Effexor Xr) 37.5 mg PO WITHBREAKFAST KASSI Last Admin: 02/23/17 09:14 Dose: 37.5 mg Discontinued Medications Acetaminophen (Tylenol) 650 mg PO NOW ONE Stop: 02/20/17 19:01 Last Admin: 02/20/17 19:28 Dose: 650 mg Carboprost Tromethamine (Hemabate Ds) 250 mcg IM ONETIME ONE Stop: 02/20/17 22:53 Last Admin: 02/21/17 00:57 Dose: Not Given Citric Acid/Sodium Citrate (Bicitra Solution) 30 ml PO ONETIME ONE Stop: 02/20/17 20:56 Last Admin: 02/20/17 21:11 Dose: 30 ml Clindamycin Phosphate (Cleocin) Confirm Administered Dose 900 mg .ROUTE .STK- MED ONE Stop: 02/20/17 21:16 Gentamicin Sulfate 560 mg/ (Sodium Chloride) 114 mls @ 200 mls/hr IV ONETIME ONE Stop: 02/20/17 21:24 Last Admin: 02/20/17 21:20 Dose: 200 mls/hr Clindamycin Phosphate 900 mg/ (Sodium Chloride) 106 mls @ 200 mls/hr IV ONETIME ONE Stop: 02/20/17 21:28 Last Admin: 02/20/17 21:28 Dose: 200 mls/hr Oxytocin/Sodium Chloride (Pitocin In Ns 30 Unit/500 Ml) Confirm Administered Dose 60 unit in 1,000 mls @ as directed .ROUTE .STK-MED ONE Stop: 02/20/17 21:16 Sodium Chloride (Normal Saline) Confirm Administered Dose 100 mls @ as directed .ROUTE .STK-MED ONE Stop: 02/20/17 21:16 Ibuprofen (Motrin) 800 mg PO Q8H PRN PRN Reason: mild pain or fever Ketorolac Tromethamine (Toradol) 15 mg IVPUSH Q6H [facility] Stop: 02/21/17 11:01 Last Admin: 02/21/17 05:35 Dose: Not Given Ketorolac Tromethamine (Toradol) 30 mg IVPUSH ONETIME ONE Stop: 02/20/17 23:38 Last Admin: 02/20/17 23:54 Dose: 30 mg Ketorolac Tromethamine (Toradol) 15 mg IVPUSH Q6H [facility] Stop: 02/21/17 18:01 Last Admin: 02/21/17 17:53 Dose: 15 mg Ondansetron HCl (Zofran Odt) 8 mg PO ONETIME ONE Stop: 02/20/17 19:02 Last Admin: 02/20/17 19:27 Dose: 8 mg - Problem List & Annotations (1) care in third trimester SNOMED Code(s): 794386239, 91496549, 73263846, 831907506, 074862352 Code(s): Z34.93 - ENCNTR FOR SUPRVSN OF NORMAL PREG, UNSP, THIRD TRIMESTER Status: Acute Current Visit: Yes (2) Drug use affecting in second trimester SNOMED Code(s): 69686495, 07802711, 219201849 Code(s): O99.322 - DRUG USE COMPLICATING , SECOND TRIMESTER Status : Acute Current Visit: Yes (3) History of delivery SNOMED Code(s): 901003808 Code(s): Z98.891 - HISTORY OF UTERINE SCAR FROM PREVIOUS SURGERY Status: Acute Current Visit: Yes (4) Ventral hernia SNOMED Code(s): 300360464 Code(s): K43.9 - VENTRAL HERNIA WITHOUT OBSTRUCTION OR GANGRENE Status: Acute Current Visit: Yes - My Orders Last 24 Hours: My Active Orders 02/23/17 12:09 Ready for Discharge [RC] PER UNIT ROUTINE - Plan Plan:: I agree with student assessment and plan. Patient is postoperative day #2 after repeat section at 37 weeks 6 days for early labor. She is doing well. There have been no complications. Anticipate discharge 02/23/17. Jessica Montenegro MD
[2017-02-23] MEDS: Acetaminophen/oxyCODONE 325-5 MG Tab PO PRN ×3 (00:39→09:14)
[2017-02-23] MEDS: Ibuprofen 800 MG Tab PO PRN (05:13)
--- NOTE | 2017-02-23 07:49 | PCM.DCSUM1 ---
[id number] Text/Narrative:: Patient has faired well in the postoperative period. Nausea and vomiting have subisided since post op day 1 and she states she continues to feel better. Continues to deny any signs of infections. She is bottle feed and has resumed her medication for her depression which she notes is going well. Bottle feeding has been going well. HPI Initial Comments: HPI from 02/20/17 - History of Present Illness Introduction:: 31-year-old at 37w6d with a history of previous section x2. She presented with complaints of low back pain and diarrhea, which is how her last two labors started. Upon arrival to the floor, she was noted to be 3.5 cm dilated. Patient was planning to delivery in [place] and have a tubal ligation during surgery. She and her talked about it and have decided to not proceed with tubal ligation. After 2 hours, cervix had changed to 4 cm and become more anterior. She is otherwise feeling well. Baby has been active. No vaginal bleeding or leaking of fluid. Pain Score: 4 - Discharge Data Discharge Date: 02/23/17 Discharge Disposition: Home, Self-Care 01 Condition: Good - Discharge Diagnosis/Problem(s) (1) Status post delivery SNOMED Code(s): 378123304, 281758918 ICD Code: Z98.891 - HISTORY OF UTERINE SCAR FROM PREVIOUS SURGERY Status: Acute Current Visit: Yes (2) Drug use affecting in second trimester SNOMED Code(s): 02725856, 11780703, 519731712 ICD Code: O99.322 - DRUG USE COMPLICATING , SECOND TRIMESTER Status: Acute Current Visit: Yes (3) History of delivery SNOMED Code(s): 535854528 ICD Code: Z98.891 - HISTORY OF UTERINE SCAR FROM PREVIOUS SURGERY Status: Acute Current Visit: Yes (4) care in third trimester SNOMED Code(s): 965202253, 13895194, 79133775, 632008975, 565916603 ICD Code: Z34.93 - ENCNTR FOR SUPRVSN OF NORMAL PREG, UNSP, THIRD TRIMESTER Status: Acute Current Visit: Yes (5) Ventral hernia SNOMED Code(s): 333095652 ICD Code: K43.9 - VENTRAL HERNIA WITHOUT OBSTRUCTION OR GANGRENE Status: Acute Current Visit: Yes (6) Blood type A+ SNOMED Code(s): 153872936 ICD Code: Z67.10 - TYPE A BLOOD, RH POSITIVE Status: Acute Current Visit : Yes (7) Depression SNOMED Code(s): 75065217 ICD Code: F32.9 - MAJOR DEPRESSIVE DISORDER, SINGLE EPISODE, UNSPECIFIED Status: Acute Current Visit: Yes Qualifiers: Depression Type: unspecified Qualified Code(s): F32.9 - Major depressive disorder, single episode, unspecified - Patient Summary/Data Consults: Consultations 02/20/17 22:52 Consult to Decorating Consultant [CONS] Routine - Patient Instructions Diet: Usual Diet as Tolerated Activity: Apply Ice, As Tolerated, No Lifting Over 20 Pounds, No Strenuous Activities (Pelvic Rest until visit) Driving: Do Not Drive Showering/Bathing: May Shower Wound/Incision Care: Keep Operative Site/Wound Site Clean and Dry Notify Provider of: Fever, Increased Pain, Swelling and Redness, Drainage, Nausea and/or Vomiting - Discharge Plan Prescriptions/Med Rec: Venlafaxine [Effexor XR] 37.5 mg PO WITHBREAKFAST #30 cap.er Home Medications: Home Meds Vit #108/Iron/FA [ One Tablet] 1 each PO DAILY 02/20/17 [ History] Docusate Sodium [Colace] 100 mg PO Q12H PRN #0 cap 02/23/17 [Rx] Ibuprofen [IJD: Ibuprofen] 800 mg PO Q8H PRN #0 tablet 02/23/17 [Rx] Venlafaxine [Effexor XR] 37.5 mg PO WITHBREAKFAST #30 cap.er 02/23/17 [Rx] Patient Handouts: Delivery, Care After, Care After Delivery Referrals: Jessica Montenegro MD [Primary Care Provider] - (Sunday with baby) - Discharge Summary/Plan Comment Discharge Summary/Plan Comment: Discharge to home in stable condition. Patient to follow up in 6 weeks for check. Pelvic rest until that time. No heavy lifting - General Info Date of Service: 02/23/17 Functional Status: Reports: pain controlled, tolerating diet, ambulating, urinating - Review of Systems General: Reports: No Symptoms. Denies: Fever, Chills HEENT: Reports: no symptoms Pulmonary: Reports: no symptoms. Denies: shortness of breath, cough, wheezing Cardiovascular: Reports: No Symptoms. Denies: Chest Pain, Edema Gastrointestinal: Reports: No symptoms. Denies: Nausea, Vomiting Genitourinary: Reports: no symptoms Musculoskeletal: Reports: no symptoms Skin: Reports: no symptoms Neurological: Reports: No Symptoms Psychiatric: Reports: no symptoms - Patient Data Vitals - Most Recent: Last Vital Signs Temp 99.0 F 02/23/17 00:00 Pulse 56 L 02/23/17 00:00 Resp 16 02/23/17 00:00 BP 134/64 02/23/17 00:00 Pulse Ox 97 02/23/17 00:00 Weight - Most Recent: 111.584 kg Med Orders - Current: Current Medications Diphenhydramine HCl (Benadryl) 25 mg IVPUSH Q6H PRN PRN Reason: Itching or Nausea Last Admin: 02/21/17 00:42 Dose: 25 mg Docusate Sodium (Colace) 100 mg PO Q12H PRN PRN Reason: Constipation Last Admin: 02/22/17 20:58 Dose: 100 mg Ephedrine Sulfate (Ephedrine Sulfate) 5 mg IVPUSH SEECOMMENT PRN PRN Reason: Other Lactated Ringer's (Ringers, Lactated) 1,000 mls @ 125 mls/hr IV ASDIRECTED KASSI Last Admin: 02/21/17 13:53 Dose: 125 mls/hr Oxytocin/Sodium Chloride (Pitocin In Ns 30 Unit/500 Ml) 30 unit in 500 mls @ 2 mls/hr IV TITRATE KASSI; 2 MUNITS/MIN PRN Reason: Protocol Last Titration: 02/21/17 00:30 Dose: 0 munits/min, 0 mls/hr Ibuprofen (Motrin) 800 mg PO Q8H PRN PRN Reason: mild pain or fever Last Admin: 02/23/17 05:13 Dose: 800 mg Methylergonovine Maleate (Methergine) 0.2 mg IM ONETIME PRN PRN Reason: Excessive Vaginal Bleeding Misoprostol (Cytotec) 800 mcg RECTAL ASDIRECTED PRN PRN Reason: Bleeding Naloxone HCl (Narcan) 0.1 mg IVPUSH SEECOMMENT PRN PRN Reason: Respiratory Depression Ondansetron HCl (Zofran) 4 mg IV Q4H PRN PRN Reason: Nausea/Vomiting Last Admin: 02/21/17 09:09 Dose: 4 mg Oxycodone/Acetaminophen (Percocet 325-5 Mg) 1 tab PO Q4H PRN PRN Reason: Pain (moderate 4-6) Last Admin: 02/21/17 14:55 Dose: 1 tab Oxycodone/Acetaminophen (Percocet 325-5 Mg) 2 tab PO Q4H PRN PRN Reason: Pain (moderate 4-6) Last Admin: 02/23/17 05:13 Dose: 2 tab Simethicone (Simethicone) 80 mg PO Q4H PRN PRN Reason: Gas Last Admin: 02/22/17 20:57 Dose: 80 mg Sodium Chloride (Saline Flush) 10 ml FLUSH ASDIRECTED PRN PRN Reason: Keep Vein Open Venlafaxine HCl (Effexor Xr) 37.5 mg PO WITHBREAKFAST KASSI Last Admin: 02/22/17 07:26 Dose: 37.5 mg Discontinued Medications Acetaminophen (Tylenol) 650 mg PO NOW ONE Stop: 02/20/17 19:01 Last Admin: 02/20/17 19:28 Dose: 650 mg Carboprost Tromethamine (Hemabate Ds) 250 mcg IM ONETIME ONE Stop: 02/20/17 22:53 Last Admin: 02/21/17 00:57 Dose: Not Given Citric Acid/Sodium Citrate (Bicitra Solution) 30 ml PO ONETIME ONE Stop: 02/20/17 20:56 Last Admin: 02/20/17 21:11 Dose: 30 ml Clindamycin Phosphate (Cleocin) Confirm Administered Dose 900 mg .ROUTE .STK- MED ONE Stop: 02/20/17 21:16 Gentamicin Sulfate 560 mg/ (Sodium Chloride) 114 mls @ 200 mls/hr IV ONETIME ONE Stop: 02/20/17 21:24 Last Admin: 02/20/17 21:20 Dose: 200 mls/hr Clindamycin Phosphate 900 mg/ (Sodium Chloride) 106 mls @ 200 mls/hr IV ONETIME ONE Stop: 02/20/17 21:28 Last Admin: 02/20/17 21:28 Dose: 200 mls/hr Oxytocin/Sodium Chloride (Pitocin In Ns 30 Unit/500 Ml) Confirm Administered Dose 60 unit in 1,000 mls @ as directed .ROUTE .STK-MED ONE Stop: 02/20/17 21:16 Sodium Chloride (Normal Saline) Confirm Administered Dose 100 mls @ as directed .ROUTE .STK-MED ONE Stop: 02/20/17 21:16 Ibuprofen (Motrin) 800 mg PO Q8H PRN PRN Reason: mild pain or fever Ketorolac Tromethamine (Toradol) 15 mg IVPUSH Q6H [facility] Stop: 02/21/17 11:01 Last Admin: 02/21/17 05:35 Dose: Not Given Ketorolac Tromethamine (Toradol) 30 mg IVPUSH ONETIME ONE Stop: 02/20/17 23:38 Last Admin: 02/20/17 23:54 Dose: 30 mg Ketorolac Tromethamine (Toradol) 15 mg IVPUSH Q6H [facility] Stop: 02/21/17 18:01 Last Admin: 02/21/17 17:53 Dose: 15 mg Ondansetron HCl (Zofran Odt) 8 mg PO ONETIME ONE Stop: 02/20/17 19:02 Last Admin: 02/20/17 19:27 Dose: 8 mg - Exam General: Reports: alert, oriented, cooperative, no acute distress HEENT: Reports: Pupils equal, Pupils reactive, EOMI, Mucous membr. moist/pink Neck: Reports: supple Lungs: Reports: Clear to auscultation, Normal respiratory effort Cardiovascular: Reports: Regular Rate, Regular Rhythm Abdomen: Reports: bowel sounds present, soft, no tenderness, no distension (Female) Exam: Deferred Rectal (Female) Exam: Deferred Back Exam: Reports: normal inspection, full range of motion Extremities: Reports: no edema, normal pulses Skin: Reports: warm, dry, intact Wound/Incisions: Reports: healing well, dressing dry and intact, no drainage Neurological: Reports: no new focal deficit Psy/Mental Status: Reports: alert, normal affect, normal mood *Q Meaningful Use (DIS) - VTE *Q VTE Criteria *Q: - Stroke *Q Stroke Criteria *Q: - AMI *Q AMI Criteria *Q: <Jessica Montenegro - Last Filed: 02/23/17 12:55> Discharge Summary - Discharge Diagnosis/Problem(s) (1) care in third trimester SNOMED Code(s): 119530106, 69642777, 92516926, 780526972, 343452113 ICD Code: Z34.93 - ENCNTR FOR SUPRVSN OF NORMAL PREG, UNSP, THIRD TRIMESTER Status: Acute Current Visit: Yes (2) Drug use affecting in second trimester SNOMED Code(s): 22010525, 46531314, 660068249 ICD Code: O99.322 - DRUG USE COMPLICATING , SECOND TRIMESTER Status: Acute Current Visit: Yes (3) History of delivery SNOMED Code(s): 823323295 ICD Code: Z98.891 - HISTORY OF UTERINE SCAR FROM PREVIOUS SURGERY Status: Acute Current Visit: Yes (4) Ventral hernia SNOMED Code(s): 665059450 ICD Code: K43.9 - VENTRAL HERNIA WITHOUT OBSTRUCTION OR GANGRENE Status: Acute Current Visit: Yes - Patient Summary/Data Consults: Consultations 02/20/17 22:52 Consult to Decorating Consultant [CONS] Routine - Discharge Summary/Plan Comment Discharge Summary/Plan Comment: I agree with student assessment and plan. I was contacted by nursing regarding drainage from the right side of patient's incision. Evaluation showed some of the Steri-Strips were saturated with blood. These were removed. Dermabond was used over the right one third of the incision. After this was allowed to dry, Steri-Strips were replaced. No further drainage was noted. Patient tolerated this well. We will discharge home today with follow-up in 6 weeks for visit. We will also titrate her Effexor dose to a therapeutic level. Follow-up for anxiety/depression as needed. Jessica Montenegro MD - Patient Data Vitals - Most Recent: Last Vital Signs Temp 36.9 C 02/23/17 09:26 Pulse 59 L 02/23/17 09:26 Resp 16 02/23/17 09:26 BP 135/85 02/23/17 09:26 Pulse Ox 100 02/23/17 09:26 Med Orders - Current: Current Medications Diphenhydramine HCl (Benadryl) 25 mg IVPUSH Q6H PRN PRN Reason: Itching or Nausea Last Admin: 02/21/17 00:42 Dose: 25 mg Docusate Sodium (Colace) 100 mg PO Q12H PRN PRN Reason: Constipation Last Admin: 02/23/17 09:14 Dose: 100 mg Ephedrine Sulfate (Ephedrine Sulfate) 5 mg IVPUSH SEECOMMENT PRN PRN Reason: Other Lactated Ringer's (Ringers, Lactated) 1,000 mls @ 125 mls/hr IV ASDIRECTED KASSI Last Admin: 02/21/17 13:53 Dose: 125 mls/hr Oxytocin/Sodium Chloride (Pitocin In Ns 30 Unit/500 Ml) 30 unit in 500 mls @ 2 mls/hr IV TITRATE KASSI; 2 MUNITS/MIN PRN Reason: Protocol Last Titration: 02/21/17 00:30 Dose: 0 munits/min, 0 mls/hr Ibuprofen (Motrin) 800 mg PO Q8H PRN PRN Reason: mild pain or fever Last Admin: 02/23/17 05:13 Dose: 800 mg Methylergonovine Maleate (Methergine) 0.2 mg IM ONETIME PRN PRN Reason: Excessive Vaginal Bleeding Misoprostol (Cytotec) 800 mcg RECTAL ASDIRECTED PRN PRN Reason: Bleeding Naloxone HCl (Narcan) 0.1 mg IVPUSH SEECOMMENT PRN PRN Reason: Respiratory Depression Ondansetron HCl (Zofran) 4 mg IV Q4H PRN PRN Reason: Nausea/Vomiting Last Admin: 02/21/17 09:09 Dose: 4 mg Oxycodone/Acetaminophen (Percocet 325-5 Mg) 1 tab PO Q4H PRN PRN Reason: Pain (moderate 4-6) Last Admin: 02/21/17 14:55 Dose: 1 tab Oxycodone/Acetaminophen (Percocet 325-5 Mg) 2 tab PO Q4H PRN PRN Reason: Pain (moderate 4-6) Last Admin: 02/23/17 09:14 Dose: 2 tab Simethicone (Simethicone) 80 mg PO Q4H PRN PRN Reason: Gas Last Admin: 02/23/17 09:14 Dose: 80 mg Sodium Chloride (Saline Flush) 10 ml FLUSH ASDIRECTED PRN PRN Reason: Keep Vein Open Venlafaxine HCl (Effexor Xr) 37.5 mg PO WITHBREAKFAST KASSI Last Admin: 02/23/17 09:14 Dose: 37.5 mg Discontinued Medications Acetaminophen (Tylenol) 650 mg PO NOW ONE Stop: 02/20/17 19:01 Last Admin: 02/20/17 19:28 Dose: 650 mg Carboprost Tromethamine (Hemabate Ds) 250 mcg IM ONETIME ONE Stop: 02/20/17 22:53 Last Admin: 02/21/17 00:57 Dose: Not Given Citric Acid/Sodium Citrate (Bicitra Solution) 30 ml PO ONETIME ONE Stop: 02/20/17 20:56 Last Admin: 02/20/17 21:11 Dose: 30 ml Clindamycin Phosphate (Cleocin) Confirm Administered Dose 900 mg .ROUTE .STK- MED ONE Stop: 02/20/17 21:16 Gentamicin Sulfate 560 mg/ (Sodium Chloride) 114 mls @ 200 mls/hr IV ONETIME ONE Stop: 02/20/17 21:24 Last Admin: 02/20/17 21:20 Dose: 200 mls/hr Clindamycin Phosphate 900 mg/ (Sodium Chloride) 106 mls @ 200 mls/hr IV ONETIME ONE Stop: 02/20/17 21:28 Last Admin: 02/20/17 21:28 Dose: 200 mls/hr Oxytocin/Sodium Chloride (Pitocin In Ns 30 Unit/500 Ml) Confirm Administered Dose 60 unit in 1,000 mls @ as directed .ROUTE .STK-MED ONE Stop: 02/20/17 21:16 Sodium Chloride (Normal Saline) Confirm Administered Dose 100 mls @ as directed .ROUTE .STK-MED ONE Stop: 02/20/17 21:16 Ibuprofen (Motrin) 800 mg PO Q8H PRN PRN Reason: mild pain or fever Ketorolac Tromethamine (Toradol) 15 mg IVPUSH Q6H [facility] Stop: 02/21/17 11:01 Last Admin: 02/21/17 05:35 Dose: Not Given Ketorolac Tromethamine (Toradol) 30 mg IVPUSH ONETIME ONE Stop: 02/20/17 23:38 Last Admin: 02/20/17 23:54 Dose: 30 mg Ketorolac Tromethamine (Toradol) 15 mg IVPUSH Q6H [facility] Stop: 02/21/17 18:01 Last Admin: 02/21/17 17:53 Dose: 15 mg Ondansetron HCl (Zofran Odt) 8 mg PO ONETIME ONE Stop: 02/20/17 19:02 Last Admin: 02/20/17 19:27 Dose: 8 mg *Q Meaningful Use (DIS) - VTE *Q VTE Criteria *Q: - Stroke *Q Stroke Criteria *Q: - AMI *Q AMI Criteria *Q:
[2017-02-23] MEDS: Venlafaxine 37.5 MG Cap.ER PO SCH (09:14)
[2017-02-23] MEDS: Simethicone 80 MG Tab.Chew PO PRN (09:14)
[2017-02-23] MEDS: Docusate Sodium 100 MG Cap PO PRN (09:14)
[2017-02-23 09:27] VITALS: BP 135/85
[2017-02-23] MEDS ORDERED: ePHEDrine 50 MG/ML SDV IV ONE (10:00)
[2017-02-23] MEDS ORDERED: fentaNYL 100 MCG/2 ML SDV IV ONE (14:24)
[2017-02-23] MEDS ORDERED: Lactated Ringers 1,000 ML IV ONE (14:24)
[2017-02-23] MEDS ORDERED: Oxytocin/Normal Saline 30 UNIT/500 ML BAG IV ONE (14:24)
[2017-02-23] MEDS ORDERED: Morphine PF 5 MG/10 ML SDV IV ONE (14:24)
[2017-02-23] MEDS ORDERED: Midazolam 1 MG/ML 2 ML SDV IV ONE (14:24)
== END 2017-02-23 14:25 | disposition home or self-care (01) | DRG 765 ==
LOC: DL.OBCHECK 18:26 → DL.OB 20:43 → OBSVTOIN 22:06 → DL.OB 22:06 → DL.MS 02-23 08:54
PROVIDERS: ADMIT Family Medicine; ATTEND Family Medicine
PROC: 10D00Z1 Extraction of Products of Conception, Low, Open Approach (ICD-10-PCS; principal; 2017-02-20)
DX: O34.211 Maternal care for low transverse scar from previous cesarean delivery (principal); O99.324 Drug use complicating childbirth; O99.89 Other specified diseases and conditions complicating pregnancy, childbirth and the puerperium; M54.5 Low back pain; R19.7 Diarrhea, unspecified; F15.90 Other stimulant use, unspecified, uncomplicated; K43.9 Ventral hernia without obstruction or gangrene; Z3A.37 37 weeks gestation of pregnancy; Z37.0 Single live birth
CPT/HCPCS: 01961; 36415; 80305; 85025; 85027; 86850; 86900; 86901; 94010; A9270-GY; J1200; J1580; J1885; J2250; J2274; J2405; J2590; J3010; J7050; J7120; S0077

== ENCOUNTER 2017-08-28 19:34 | Emergency (ER) | payer MEDICAID ==
[2017-08-28 19:47] VITALS: BP 127/92
[2017-08-28] MEDS ORDERED: Ibuprofen 800 MG Tab PO ONE (19:54)
--- NOTE | 2017-08-28 19:54 | EDM.PDOC ---
ED HPI GENERAL MEDICAL PROBLEM - General Chief Complaint: ENT Problem Stated Complaint: SEVERE TOOTHACHE,SINUS INFECTION, [id number] Time Seen by Provider: 08/28/17 19:49 Source of Information: Reports: Patient History Limitations: Reports: No Limitations - History of Present Illness INITIAL COMMENTS - FREE TEXT/NARRATIVE: c/o sinus infection with green drainage for one week, chills today, tonight at 530pm sudden onset of severe dental pain to left incisor and first molar on top. Tried salt rinse and oragel without improvement. 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: Other (See Below) Other OB/BYN History: one vaginal and on c section Psychiatric History: Reports: Depression Social & Family History - Family History Family Medical History: Noncontributory - Tobacco Use Smoking Status *Q: Never Smoker Second Hand Smoke Exposure: No - Caffeine Use Caffeine Use: Reports: None - Recreational Drug Use Recreational Drug Use: No Drug Use in Last 12 Months: Yes Recreational Drug Type: Reports: Amphetamines (Speed), Other (see below) Other Recreational Drug Type: intensive out patient tx Recreational Drug Use Frequency: Not Used In Over 1 Month Recreational Drug Last Use: dec 2016 ED ROS ENT - Review of Systems Review Of Systems: See Below ED EXAM, ENT - Physical Exam Exam: See Below Exam Limited By: Language Barrier General Appearance: Alert, Moderate Distress, Obese Eye Exam: Bilateral Eye: EOMI Ears: Normal External Exam, Normal TMs Nose: Normal Inspection Mouth/Throat: Dental Abcess (above left upper incisor. firm pea size tender area ), Dental Pain, Gum Swelling. No: Pharyngeal Erythema Head: Atraumatic, Normocephalic Neck: Full Range of Motion. No: Lymphadenopathy (L), Lymphadenopathy (R) Respiratory/Chest: No Respiratory Distress, Lungs Clear, Normal Breath Sounds Cardiovascular: Normal Peripheral Pulses, Regular Rate, Rhythm Extremities: Normal Inspection Neurological: Alert, Oriented, Normal Cognition Psychiatric: Normal Affect Skin: Warm, Dry, Intact, Normal Color Course - Vital Signs Last Recorded V/S: Last Vital Signs Temp 97.1 F 08/28/17 19:38 Pulse 97 08/28/17 19:38 Resp 20 08/28/17 19:38 BP 127/92 H 08/28/17 19:47 Pulse Ox 97 08/28/17 19:38 - Orders/Labs/Meds Meds: Medications Discontinued Medications Generic Name Dose Route Start Last Admin Trade Name Reggie PRN Reason Stop Dose Admin Clindamycin HCl 300 mg 08/28/17 19:55 08/28/17 20:05 Cleocin PO 08/28/17 19:56 300 mg ONETIME ONE Administration Ibuprofen 800 mg 08/28/17 19:54 08/28/17 20:05 Motrin PO 08/28/17 19:55 800 mg ONETIME ONE Administration Departure - Departure Time of Disposition: 20:02 Disposition: Home, Self-Care 01 Condition: Good Clinical Impression: Dental abscess Sinusitis Qualifiers: Sinusitis location: frontal Chronicity: acute Recurrence: not specified as recurrent Qualified Code(s): J01.10 - Acute frontal sinusitis, unspecified - Discharge Information Instructions: Dental Abscess, [id number] Forms: ED Department Discharge Additional Instructions: continue to use oragel as needed alternate tylenol 650mg with ibuprofen 600-800mg every 4 hours as needed for discomfort take ibuprofen with food clindamycin 300mg three times daily for one week follow up with dentist in [place]
[2017-08-28] MEDS ORDERED: Clindamycin HCl 150 MG Cap PO ONE (19:55)
== END 2017-08-28 20:13 | disposition home or self-care (01) ==
LOC: DL.ED 19:34
DX: K04.7 Periapical abscess without sinus (principal); Z88.1 Allergy status to other antibiotic agents; J01.10 Acute frontal sinusitis, unspecified
CPT/HCPCS: 99282; A9270

== ENCOUNTER 2021-06-03 23:14 | Emergency (ER) | payer BC, MEDICAID ==
[2021-06-04 00:24] VITALS: BP 118/87; PULSE 94
--- NOTE | 2021-06-04 01:37 | EDM.PDOC ---
ED HPI GENERAL MEDICAL PROBLEM - General Chief Complaint: General Stated Complaint: DO NOT FELL GOOD, HURTS ALL OVER, DHIRREA Time Seen by Provider: 06/04/21 00:30 Source of Information: Reports: Patient History Limitations: Reports: No Limitations - History of Present Illness INITIAL COMMENTS - FREE TEXT/NARRATIVE: ED with c/o not feeling well, general body aches, diarrhea, feels like worms ar moving under skin and new spots are appearing, and "boogers all look funny" Admits hx of drug use but reports none for past 2 months. No report of fever or shills. No urinary symptoms. No vomiting. Prior IVDU. Generalized Pain Score (Numeric/FACES): 5 - Related Data Allergies Allergy/AdvReac Type Severity Reaction Status Date / Time amoxicillin Allergy Anaphylactic Verified 06/04/21 00:23 Shock Home Meds: Home Meds ARIPiprazole [Abilify] 2 mg PO DAILY 06/04/21 [History] DULoxetine HCl [Cymbalta] 60 mg PO DAILY 06/04/21 [History] hydrOXYzine HCL [Hydroxyzine HCl] 25 mg PO TID 06/04/21 [History] Past Medical History - Past Health History Medical/Surgical History: Denies Medical/Surgical History Gastrointestinal History: Reports: Other (See Below) Other Gastrointestinal History: [employer] History: Reports: , Other (See Below) Other [employer]ANT History: one vaginal and TWO c section Musculoskeletal History: Reports: Fracture Psychiatric History: Reports: Anxiety, Depression Endocrine/Metabolic History: Reports: Obesity/BMI 30+ Hematologic History: Reports: Idiopathic Thrombocytopenia - Past Surgical History HEENT Surgical History: Reports: Tonsillectomy GI Surgical History: Reports: Cholecystectomy Female Surgical History: Reports: Section Social & Family History - Family History Family Medical History: No Pertinent Family History - Tobacco Use Tobacco Use Status *Q: Current Every Day Tobacco User Years of Tobacco use: 15 Packs/Tins Daily: 0.5 Second Hand Smoke Exposure: Yes - Caffeine Use Caffeine Use: Reports: None - Recreational Drug Use Recreational Drug Use: Yes Drug Use in Last 12 Months: Yes Recreational Drug Type: Reports: Methamphetamine Recreational Drug Use Frequency: Not Used In Over 4 Months ED ROS GENERAL - Review of Systems Review Of Systems: Comprehensive ROS is negative, except as noted in HPI. ED EXAM, GENERAL - Physical Exam Exam: See Below Exam Limited By: No Limitations General Appearance: Alert, Anxious, Mild Distress Eye Exam: Bilateral Eye: EOMI Ears: Normal External Exam, Hearing Grossly Normal Nose: Normal Inspection Throat/Mouth: Normal Inspection Head: Atraumatic, Normocephalic Neck: Normal Inspection Respiratory/Chest: No Respiratory Distress, Lungs Clear, Normal Breath Sounds Cardiovascular: Normal Peripheral Pulses, Regular Rate, Rhythm GI/Abdominal: Normal Bowel Sounds, Soft, Non-Tender Back Exam: Normal Inspection Extremities: Normal Inspection Neurological: Alert, Oriented Psychiatric: Anxious (restless, pressured speech, dartingeye movements ) Skin Exam: Warm, Dry, Intact, Normal Color ( no sores or lesions where patient pointing to. ), Tattoo(s). No: Ecchymosis, Rash, Wound/Incision Course - Vital Signs Last Recorded V/S: Last Vital Signs Temp 97.5 F 06/04/21 00:15 Pulse 94 06/04/21 00:15 Resp 18 06/04/21 00:15 BP 118/87 06/04/21 00:15 Pulse Ox 100 06/04/21 00:15 - Orders/Labs/Meds Labs: Laboratory Tests 06/04/21 06/04/21 06/04/21 Range/Units 01:50 01:50 02:00 WBC 4.9 L (5.0-10.0) 10^3/uL RBC 4.83 (4.2-5.4) 10^6/uL Hgb 14.4 D (12.0-16.0) g/dL Hct 43.8 (37.0-47.0) % MCV 90.7 D (80-100) fL MCH 29.8 (27.0-34.0) pg MCHC 32.9 L (33.0-35.0) g/dL Plt Count 157 (150-450) 10^3/uL Neut % (Auto) 48.1 (42.2-75.2) % Lymph % (Auto) 36.3 (20.5-50.1) % Bradley % (Auto) 11.1 H (2-8) % Eos % (Auto) 3.9 H (1.0-3.0) % Baso % (Auto) 0.6 (0.0-1.0) % Sodium 141 (136-145) mmol/L Potassium 3.1 L (3.5-5.1) mmol/L Chloride 104 (98-107) mmol/L Carbon Dioxide 27 (21-32) mmol/L Anion Gap 13.1 H (7-13) mEq/L BUN 9 (7-18) mg/dL Creatinine 0.87 (0.55-1.02) mg/dL Est Cr Clr Drug Dosing 76.08 mL/min Estimated GFR (MDRD) > 60 BUN/Creatinine Ratio 10.3 (No establ ref range) Glucose 91 (70-99) mg/dL Calcium 8.5 (8.5-10.1) mg/dL Total Bilirubin 1.0 (0.2-1.0) mg/dL AST 112 H (15-37) U/L ALT 222 H (14-59) U/L Alkaline Phosphatase 70 (46-116) U/L Total Protein 7.1 (6.4-8.2) g/dL Albumin 3.8 (3.4-5.0) g/dL Globulin 3.3 Albumin/Globulin Ratio 1.2 Urine Color Delma (YELLOW) Urine Appearance Slightly cloudy (CLEAR) Urine pH 6.0 (5.0-9.0) Ur Specific [place] >= 1.030 (1.005-1.030) Urine Protein 30 H (NEGATIVE) Urine Glucose (UA) Negative (NEGATIVE) Urine Ketones 15 H (NEGATIVE) Urine Occult Blood Negative (NEGATIVE) Urine Nitrite Negative (NEGATIVE) Urine Bilirubin Small H (NEGATIVE) Urine Urobilinogen 1.0 (0.2-1.0) mg/dL Ur Leukocyte Esterase Negative (NEGATIVE) Urine RBC Not seen /HPF Urine WBC 0-5 (0-5/HPF) /HPF Ur Epithelial Cells Occasional (NOT SEEN) /HPF Urine Bacteria Moderate H (0-FEW/HPF) /HPF Urine Mucus Moderate H (NOT SEEN) /LPF Urine Opiates Screen (NEGATIVE) Ur Oxycodone Screen (NEGATIVE) Urine Methadone Screen (NEGATIVE) Ur Barbiturates Screen (NEGATIVE) U Tricyclic Antidepress (NEGATIVE) Ur Phencyclidine Scrn (NEGATIVE) Ur Amphetamine Screen (NEGATIVE) U Methamphetamines Scrn (NEGATIVE) Urine MDMA Screen (NEGATIVE) U Benzodiazepines Scrn (NEGATIVE) Urine Cocaine Screen (NEGATIVE) U Marijuana (THC) Screen (NEGATIVE) Ethyl Alcohol < 3 (0) mg/dL 06/04/21 Range/Units 02:00 WBC (5.0-10.0) 10^3/uL RBC (4.2-5.4) 10^6/uL Hgb (12.0-16.0) g/dL Hct (37.0-47.0) % MCV (80-100) fL MCH (27.0-34.0) pg MCHC (33.0-35.0) g/dL Plt Count (150-450) 10^3/uL Neut % (Auto) (42.2-75.2) % Lymph % (Auto) (20.5-50.1) % Bradley % (Auto) (2-8) % Eos % (Auto) (1.0-3.0) % Baso % (Auto) (0.0-1.0) % Sodium (136-145) mmol/L Potassium (3.5-5.1) mmol/L Chloride (98-107) mmol/L Carbon Dioxide (21-32) mmol/L Anion Gap (7-13) mEq/L BUN (7-18) mg/dL Creatinine (0.55-1.02) mg/dL Est Cr Clr Drug Dosing mL/min Estimated GFR (MDRD) BUN/Creatinine Ratio (No establ ref range) Glucose (70-99) mg/dL Calcium (8.5-10.1) mg/dL Total Bilirubin (0.2-1.0) mg/dL AST (15-37) U/L ALT (14-59) U/L Alkaline Phosphatase (46-116) U/L Total Protein (6.4-8.2) g/dL Albumin (3.4-5.0) g/dL Globulin Albumin/Globulin Ratio Urine Color (YELLOW) Urine Appearance (CLEAR) Urine pH (5.0-9.0) Ur Specific [place] (1.005-1.030) Urine Protein (NEGATIVE) Urine Glucose (UA) (NEGATIVE) Urine Ketones (NEGATIVE) Urine Occult Blood (NEGATIVE) Urine Nitrite (NEGATIVE) Urine Bilirubin (NEGATIVE) Urine Urobilinogen (0.2-1.0) mg/dL Ur Leukocyte Esterase (NEGATIVE) Urine RBC /HPF Urine WBC (0-5/HPF) /HPF Ur Epithelial Cells (NOT SEEN) /HPF Urine Bacteria (0-FEW/HPF) /HPF Urine Mucus (NOT SEEN) /LPF Urine Opiates Screen Negative (NEGATIVE) Ur Oxycodone Screen Negative (NEGATIVE) Urine Methadone Screen Negative (NEGATIVE) Ur Barbiturates Screen Negative (NEGATIVE) U Tricyclic Antidepress Negative (NEGATIVE) Ur Phencyclidine Scrn Negative (NEGATIVE) Ur Amphetamine Screen Positive H (NEGATIVE) U Methamphetamines Scrn Positive H (NEGATIVE) Urine MDMA Screen Positive H (NEGATIVE) U Benzodiazepines Scrn Negative (NEGATIVE) Urine Cocaine Screen Negative (NEGATIVE) U Marijuana (THC) Screen Negative (NEGATIVE) Ethyl Alcohol (0) mg/dL Meds: Medications Discontinued Medications Generic Name Dose Route Start Last Admin Trade Name Freq PRN Reason Stop Dose Admin Potassium Chloride 20 meq 06/04/21 02:22 06/04/21 02:30 Potassium Chloride 10 Meq Tab.Er PO 06/04/21 02:23 20 meq ONETIME ONE Administration Departure - Departure Time of Disposition: 01:38 Disposition: Home, Self-Care 01 Condition: Good Clinical Impression: Positive urine drug screen, Hypokalemia - Discharge Information *PRESCRIPTION DRUG MONITORING PROGRAM REVIEWED*: No *COPY OF PRESCRIPTION DRUG MONITORING REPORT IN PATIENT MATT: No Instructions: Hypokalemia, Methamphetamines Use Disorder Forms: ED Department Discharge Additional Instructions: increase fluids clinic follow up next week don't use meth continue home medications as prescribed Sepsis Event Note (ED) - Evaluation Sepsis Screening Result: No Definite Risk
[2021-06-04 02:14] LABS: AMPHETAMINES,URINE POSITIVE (NEGATIVE); BARBITURATES,URINE NEGATIVE (NEGATIVE); BENZODIAZEPINE,URINE NEGATIVE (NEGATIVE); MDMA (ECSTASY), URINE POSITIVE (NEGATIVE); METHADONE,URINE NEGATIVE (NEGATIVE); METHAMPHETAMINES,URINE POSITIVE (NEGATIVE); OPIATES,URINE NEGATIVE (NEGATIVE); OXYCODONE,URINE NEGATIVE (NEGATIVE); PHENCYCLIDINE,URINE NEGATIVE (NEGATIVE); TCA,URINE NEGATIVE (NEGATIVE)
[2021-06-04 02:17] LABS: ANION GAP 13.1 mEq/L (7-13); CHLORIDE,CL 104 mmol/L (98-107); SODIUM,NA 141 mmol/L (136-145)
[2021-06-04] MEDS ORDERED: Potassium Chloride 10 MEQ Tab.ER PO ONE (02:22)
== END 2021-06-04 02:31 | disposition home or self-care (01) ==
LOC: DL.ED 23:14
DX: E87.6 Hypokalemia (principal); R82.5 Elevated urine levels of drugs, medicaments and biological substances; E66.9 Obesity, unspecified; Z68.41 Body mass index [BMI] 40.0-44.9, adult; Z88.0 Allergy status to penicillin; Z72.0 Tobacco use
CPT/HCPCS: 36415; 80053; 80305; 80307; 81001; 85025; 99283; 99284; A9270